=== PATIENT | female | born 2000 | race African-American/Black ===

== ENCOUNTER 2022-08-11 07:29 | Emergency (ER) | payer BC, SELFPAY ==
[2022-08-11 07:33] VITALS: PULSE 77; RESP 22; TEMP 35.6; O2SAT 100; BMI 22.7
[2022-08-11 07:50] VITALS: BP 130/86
[2022-08-11] MEDS: ONDANSETRON 2 MG/ML inj 4 MG IVP ×2 (07:55→09:10)
[2022-08-11] MEDS: 0.9 % SODIUM CHLORIDE 1000 ml 1,000 ML IV ×2 (07:55→09:33)
[2022-08-11 08:09] LABS: Lactate* 2.2 mmol/L (0.5-1.9)
[2022-08-11 08:17] LABS: Basophils Absolute Auto 0.01 K/uL (0.00-0.30); Basophils Percent Auto 0.2 % (0.0-3.0); Eosinophils Absolute Auto 0.08 K/uL (0.00-0.50); Eosinophils Percent Auto 1.3 % (0.0-7.0); Hematocrit 38.9 % (33.0-51.0); Hemoglobin* 13.1 gm/dL (12.0-16.0); Immature Granulocytes Abs Auto 0.03 K/uL (0.00-0.30); Immature Granulocytes Pct Auto 0.5 %; Lymphocytes Absolute Auto 2.21 K/uL (0.90-2.90); Mean Corpuscular HGB Conc 34 gm/dL (32-36); Mean Corpuscular Hemoglobin 29 pg (26-34); Mean Corpuscular Volume 85 fL (80-100); Monocytes Percent Auto 7.9 % (0.0-11.0); Neutrophils Absolute Auto 3.17 K/uL (1.7-7.0); Neutrophils Percent Auto 53.1 % (42.0-72.0); Platelet Count* 368 K/uL (140-440); RDW Coefficient of Variation % 13.5 % (11.5-15.5); Red Blood Count 4.56 m/uL (4.00-5.20); White Blood Count* 5.97 K/uL (4.50-11.00)
[2022-08-11 08:26] LABS: Slide Review Reflex No
[2022-08-11 08:38] LABS: Albumin* 4.6 g/dL (3.3-5.0); Chloride* 105 mmol/L (96-114); Potassium* 3.2 mmol/L (3.6-5.1); Sodium* 139 mmol/L (135-149)
[2022-08-11 08:40] LABS: Creatinine* 0.9 mg/dL (0.5-1.5); Est. Creatinine Clearance* 73.36; Estimated Glomerular Filt Rate 92 ml/min
[2022-08-11 08:41] LABS: Alanine Aminotransferase* 17 U/L (4-35); Alkaline Phosphatase* 80 U/L (40-150); Aspartate Amino Transferase* 24 U/L (12-35); Bilirubin Direct* 0.1 mg/dL (0.0-0.5); Bilirubin Total* 0.6 mg/dL (0.1-1.5); Blood Urea Nitrogen* 8 mg/dL (5-24); Calcium* 9.3 mg/dL (8.4-10.6); Carbon Dioxide* 21 mmol/L (20-32); Glucose* 128 mg/dL (60-115); Lipase* 119 U/L (23-300); Total Protein* 7.9 g/dL (6.0-8.3)
[2022-08-11] MEDS: METOCLOPRAMIDE HCL 5 MG/ML INJ 10 MG IVP (08:42)
[2022-08-11 08:50] LABS: Ur HCG Qualitative* Negative (Negative)
[2022-08-11 08:56] LABS: Amphetamine Screen Urine Negative (Negative); Barbiturate Screen Urine Negative (Negative); Benzodiazepines Screen Urine Negative (Negative); Cocaine Screen Urine Negative (Negative); Methadone Screen Urine Negative (Negative); Methamphetamines Screen Urine Negative (Negative); Opiate Screen Urine Negative (Negative); Oxycodone Screen Urine Negative (Negative); Phencyclidine Screen Urine Negative (Negative); Tricyclic Antidepressant Urine Negative (Negative)
[2022-08-11 09:07] LABS: Cannabinoid Screen Urine POSITIVE (Negative)
--- NOTE | 2022-08-11 09:25 | ED.GENADULT ---
HPI - General Adult General Chief complaint: Nausea/Vomiting Stated complaint: throwing up last 3 days Time Seen by Provider: 08/11/22 07:50 Source: patient Mode of arrival: ambulatory Limitations: no limitations History of Present Illness HPI narrative: 22-year-old female coming in today complaining of vomiting for the last 2 days. She states that she just wretches all day long. Denies , is currently menstruating. Does not take any medications. Denies any recent travel or sick contacts. Denies blood in her vomit. She denies any diarrhea or constipation although states that she had a loose stool this morning. Denies pain with urination. She says that she has some epigastric discomfort especially when she is vomiting otherwise no abdominal pain. She initially denies marijuana use. States that she took a delta gummy this morning to see if that would help with the nausea and it did not. Denies other drug use. No fevers or chills. Related Data Previous Rx's Medication Instructions Recorded ondansetron HCl 4 mg tablet 4 mg PO TID PRN nausea and 08/11/22 vomiting #10 tabs Allergies Allergy/AdvReac Type Severity Reaction Status Date / Time ibuprofen AdvReac Gastrointestinal Verified 08/11/22 07:37 Upset Review of Systems Status of ROS: Reports: 10 or more systems reviewed and unremarkable except as noted in History and below [facility] Social History Smoking Status: Never smoker Do you use any of these nicotine containing products: Vaping Products Second hand tobacco smoke exposure: No How often do you have a drink containing alcohol: monthly or less How often do you have six or more drinks on one occasion: Never AUDIT-C Alcohol total score: 1 Non-prescribed substance use: marijuana (any form) Non-prescribed substance use details: Delta 8 Exam Narrative: Exam Narrative: Well-nourished well-developed patient in no acute distress. Alert and oriented. Answers questions appropriately. Mood and affect are appropriate. Thoughts are goal oriented and rational. No tangential or magical thinking noted. Patient speaks in full sentences without needing to catch her breath. Patient does retch 1 time during the exam. HEENT: Normocephalic atraumatic. Pupils are equally round reactive to light. Extraocular muscles are intact. Conjunctivae are moist without any icterus noted. Moist mucous membranes. Posterior pharynx is normal. Neck is soft without any lymphadenopathy or thyromegaly. No masses are appreciated. Cardiovascular: Heart is regular rate and rhythm S1 and S2 are present without any murmurs. Lungs: Clear to auscultation bilaterally no wheezes rhonchi or rales are appreciated. Patient takes deep breaths without any discomfort. Abdomen: Soft and nontender nondistended with normal bowel sounds. No guarding or rebound. No masses or organomegaly appreciated. Extremities: Bilateral lower extremities are without edema. Normal DP and PT pulses. Skin: Well perfused without any obvious rashes. Const: Vital Signs, click to edit/add: Vital Signs - 24 hr 08/11/22 07:33 08/11/22 07:50 08/11/22 09:42 Temperature 96.1 F L Pulse Rate [Pulse Oximeter] 77 81 Respiratory Rate 22 18 Blood Pressure [Ri ght Upper Arm] 130/86 99/66 Pulse Oximetry 100 96 Course Course Hospital Course: IV was started and patient received a total of 2 L normal saline. She received 8 mg of IV Zofran followed by 10 mg of IV Reglan. Retching was finally controlled. Labs did show low potassium, therefore 10 mEq of potassium was replaced IV through her IV fluids. Urine drug screen does come back positive for marijuana. Upon further discussion, patient does mention that she vapes THC regularly, almost daily, and has been doing that since 2020. We discussed that this can cause vomiting and retching like she has been showing in the ED today, patient tells me that this is not the cause. Vital Signs Vital signs: Initial Vital Signs Temperature 96.1 F L 08/11/22 07:33 Temperature Source Temporal Artery Scan 08/11/22 07:33 Pulse Rate 77 08/11/22 07:33 Respiratory Rate 22 08/11/22 07:33 Pulse Oximetry 100 08/11/22 07:33 Vital Signs Temperature 96.1 F L 08/11/22 07:33 Pulse Rate 77 08/11/22 07:33 Respiratory Rate 22 08/11/22 07:33 Pulse Oximetry 100 08/11/22 07:33 Temperature 96.1 F L 08/11/22 07:33 Pulse Rate 81 08/11/22 09:42 Respiratory Rate 18 08/11/22 09:42 Blood Pressure 99/66 08/11/22 09:42 Pulse Oximetry 96 08/11/22 09:42 Medical Decision Making MDM Narrative Medical decision making narrative: Vomiting, retching likely secondary to marijuana use. We discussed cessation of marijuana. We discussed rest, hydration. Patient was in agreement had no other questions. Lab Data Lab results reviewed: Yes I reviewed the patient's lab results Labs: Lab Results 08/11/22 08/11/22 Range/Units 07:45 08:35 WBC 5.97 (4.50-11.00) K/uL RBC 4.56 (4.00-5.20) m/uL Hgb 13.1 (12.0-16.0) gm/dL Hct 38.9 (33.0-51.0) % MCV 85 (80-100) fL MCH 29 (26-34) pg MCHC 34 (32-36) gm/dL RDW Coeff of Rosalia 13.5 (11.5-15.5) % Plt Count 368 (140-440) K/uL Neut % (Auto) 53.1 (42.0-72.0) % Lymph % (Auto) 37.0 (20-44) % [place] % (Auto) 7.9 (0.0-11.0) % Eos % (Auto) 1.3 (0.0-7.0) % Baso % (Auto) 0.2 (0.0-3.0) % Neut # (Auto) 3.17 (1.7-7.0) K/uL Lymph # (Auto) 2.21 (0.90-2.90) K/uL [place] # (Auto) 0.50 (0.00-0.90) K/UL Eos # (Auto) 0.08 (0.00-0.50) K/uL Baso # (Auto) 0.01 (0.00-0.30) K/uL Sodium 139 (135-149) mmol/L Potassium 3.2 L (3.6-5.1) mmol/L Chloride 105 (96-114) mmol/L Carbon Dioxide 21 (20-32) mmol/L BUN 8 (5-24) mg/dL Creatinine 0.9 (0.5-1.5) mg/dL Estimated Creat Clear 73.36 Estimated GFR 92 ml/min Glucose 128 H (60-115) mg/dL Lactate 2.2 H (0.5-1.9) mmol/L Calcium 9.3 (8.4-10.6) mg/dL Total Bilirubin 0.6 (0.1-1.5) mg/dL Direct Bilirubin 0.1 (0.0-0.5) mg/dL AST 24 (12-35) U/L ALT 17 (4-35) U/L Alkaline Phosphatase 80 (40-150) U/L Total Protein 7.9 (6.0-8.3) g/dL Albumin 4.6 (3.3-5.0) g/dL Lipase 119 (23-300) U/L Urine HCG, Qual Negative (Negative) Urine Opiates Screen Negative (Negative) Ur Oxycodone Screen Negative (Negative) Urine Methadone Screen Negative (Negative) Ur Propoxyphene Screen Negative (Negative) Ur Barbiturates Screen Negative (Negative) U Tricyclic Antidepress Negative (Negative) Ur Phencyclidine Scrn Negative (Negative) Ur Amphetamines Screen Negative (Negative) U Methamphetamines Scrn Negative (Negative) U Benzodiazepines Scrn Negative (Negative) Urine Cocaine Screen Negative (Negative) U Marijuana (THC) Screen POSITIVE A* (Negative) Ur Drug Screen Comment See Note Discharge Plan Discharge Clinical Impression: Vomiting, Retching Patient Disposition: Home, Self-Care Condition: Improved Additional Instructions: Do recommend you stop using all THC products. Get plenty of rest over the next couple days and stay well hydrated. Prescriptions: New ondansetron HCl 4 mg tablet 4 mg PO TID PRN (Reason: nausea and vomiting) Qty: 10 0RF Follow Up/Referrals: Provider,Not a Local [Primary Care Provider] - Stand Alone Forms: [employer] [employer] Info Instructions
[2022-08-11] MEDS: POTASSIUM CHLORIDE 10 MEQ/100 ML PIGGYBACK 100 MEQ IVPB (09:33)
[2022-08-11 09:42] VITALS: BP 99/66; PULSE 81; RESP 18; O2SAT 96
--- NOTE | 2022-08-11 09:46 | ED.NURSE ---
Addendum entered by Estefani Shi RN 08/11/22 10:44: Ativan was held as pt was no longer nauseated Original Note: Pt feeling better after second zofran. Resting on cart. Meds infusing without difficulties. Call light within reach.
[2022-08-11 10:43] VITALS: BP 99/66; PULSE 81; RESP 18; TEMP 35.6
--- NOTE | 2022-08-11 11:24 | ED.NURSE ---
Pt's mom called stating that pt cannot take pills and the zofran was not sent over as ODT. Pharmacy called and informed that they could dispense zofran ODT with same instructions per Dr Alexander.
== END 2022-08-11 10:44 | disposition home or self-care (01) ==
PROVIDERS: Emergency Provider Family Medicine
DX: R11.10 Vomiting, unspecified (principal)
CPT/HCPCS: 36415; 80048; 80076; 80306; 81025; 83605; 83690; 85025; 96361; 96374; 96375; 96376; 99284; J2405; J2765; J3480; J7030

== ENCOUNTER 2023-01-23 14:49 | Outpatient (CLI) | payer BC, SELFPAY | END 2023-01-23 14:50 | disposition home or self-care (01) | PROVIDERS: PCP Family Medicine; Visit Provider Family Medicine | DX: Z13.220 Encounter for screening for lipoid disorders (principal); R53.83 Other fatigue; N92.0 Excessive and frequent menstruation with regular cycle; F41.9 Anxiety disorder, unspecified | CPT/HCPCS: 80053; 80061; 82728; 84443 ==

== ENCOUNTER 2023-10-22 10:15 | Outpatient (RCR) | payer BC, SELFPAY | END 2023-12-19 15:37 | disposition home or self-care (01) | PROVIDERS: PCP Family Medicine; Visit Provider Family Medicine | DX: M25.572 Pain in left ankle and joints of left foot (principal); G89.29 Other chronic pain; Z51.89 Encounter for other specified aftercare | CPT/HCPCS: 97110; 97140; 97161; 97535 ==